=== PATIENT | female | born 1975 | race Caucasian/White ===

== ENCOUNTER 2016-12-19 10:04 | Emergency (ER) | payer OTHER ==
[2016-12-19] MEDS ORDERED: MULTIVITAMIN PO (10:22)
[2016-12-19 10:44] LABS: URINE BILIRUBIN NEGATIVE (NEG); URINE BLOOD LARGE (NEG); URINE GLUCOSE (UA) NEGATIVE (NEG); URINE KETONE NEGATIVE (NEG); URINE LEUKOCYTE ESTERASE NEGATIVE (NEG); URINE NITRITE NEGATIVE (NEG); URINE PROTEIN NEGATIVE (NEG)
[2016-12-19 10:45] LABS: URINE APPEARANCE CLEAR; URINE COLOR YELLOW
[2016-12-19 10:52] LABS: URINE RBC 0-2 /[HPF] (0-5); URINE WBC RARE /[HPF] (0-5)
[2016-12-19 10:53] LABS: URINE BACTERIA 1+; URINE EPITHELIAL CELLS 0-1 /[HPF] (0-10)
[2016-12-19] MEDS ORDERED: NORCO 5-325 TA1 EACH PO (11:05)
[2016-12-19] MEDS ORDERED: KEFLEX500 M4 PO (11:05)
[2017-01-11] MEDS ORDERED: BACTRIM DS TAB1 EAC2 PO (12:49)
[2017-01-11] MEDS ORDERED: ZOFRAN4 M2 PO (15:09)
[2017-01-11] MEDS ORDERED: PERCOCET 5-3251 EACH PO (15:09)
[2017-01-11] MEDS ORDERED: FLOMAX0.4 M1 PO (15:09)
== END 2016-12-19 11:18 ==
LOC: EDMED 10:04
PROVIDERS: Emergency Medicine
DX: N20.0 Calculus of kidney (principal); R31.9 Hematuria, unspecified; Z88.8 Allergy status to other drugs, medicaments and biological substances; Z87.442 Personal history of urinary calculi; Z98.890 Other specified postprocedural states